=== PATIENT | male | born 1935 | race Caucasian/White ===

== ENCOUNTER 2022-10-01 12:18 | Outpatient (CLI) | payer MEDICARE, SELFPAY ==
--- NOTE | 2022-10-01 12:49 | ECG_ITS ---
Measurements Intervals [place] Rate: 65 P: MN: 0 QRS: -37 QRSD: 104 T: 29 QT: 410 QTc: 426 Interpretive Statements SINUS RHYTHM WITH MARKED FIRST DEGREE AV BLOCK LEFT AXIS DEVIATION DELAYED PRECORDIAL R/S TRANSITION BASELINE ARTIFACT- I, II, III, AVR, AVL, AVF ABNORMAL ECG NO PREVIOUS ECG AVAILABLE FOR COMPARISON Electronically Signed On 10-01-2022 13:04:36 [employer] by Jimy Henriquez D.O.
[2022-10-01 13:21] LABS: Anion Gap 6 mmol/L (8-16); Blood Urea Nitrogen 18 mg/dL (9-20); Calcium 9.9 mg/dL (8.4-10.2); Carbon Dioxide 31 mmol/L (22-30); Chloride 102 mmol/L (98-107); Estimated Glomerular Filt Rate > 60; Glucose 132 mg/dL (65-110); Potassium 3.8 mmol/L (3.4-5.0); Sodium 139 mmol/L (137-145)
== END 2022-10-01 12:19 | disposition home or self-care (01) ==
PROVIDERS: Anesthesiology; PCP Pediatrics; Visit Provider Urology
DX: R97.20 Elevated prostate specific antigen [PSA] (principal); I10 Essential (primary) hypertension; R94.31 Abnormal electrocardiogram [ECG] [EKG]; I44.0 Atrioventricular block, first degree; Z51.81 Encounter for therapeutic drug level monitoring; Z87.891 Personal history of nicotine dependence
CPT/HCPCS: 36415; 80048; 87086; 93005

== ENCOUNTER 2022-10-08 00:58 | Day surgery (SDC) | payer MEDICARE, SELFPAY ==
[2022-09-11 11:31] VITALS: BMI 25.2
--- NOTE | 2022-09-11 11:56 | PC.NURSE ---
Report to the Outpatient Waiting Room, entrance under the green pavilion located off [facility], at time _6:30AM on date __09/24/22 . Planned Procedure Time: __8:30AM . Time changes happen often and if your time is changed the preop area will call you the afternoon before. - You and your visitor will be asked to self-screen and do not enter if you have any COVID symptoms. - Only one visitor is requested with a max of two and NO children visitors are allowed at this time. - The patient visitor may be requested to leave or wait in car when not with patient due to distancing restrictions. - A mask is optional within the hospital. Patients may have clear liquids (water, carbonated beverages, clear teas, apple juice) until 3 hours prior to surgery with a maximum of 20 ounces. - No food from midnight until time of surgery. Take the following medications with a SIP of water the morning of surgery: __NONE Medications to discontinue per physician ____HOLD ALL VITAMINS/SUPPLEMENTS 7 DAYS PRE-OP (PER DR LEDESMA, PER PT) Date to take last dose___09/17/22 Please no make-up, nail sami, hairspray, perfume, deodorant, or body powder the day of surgery. No jewelry (including any body piercings) or valuables the day of surgery, leave them at home. Please take a shower or bath the night before, or the morning of, surgery with an antibacterial soap. Wear comfortable, loose fitting clothing. Children are encouraged to wear pajamas. - Jewelry must be removed prior to entering the operating room. Rings and piercings that are not removed may be cut off. - The hospital will not accept responsibility for valuables. - Please leave all valuables, including medications, at home the day of surgery. If you are going home after surgery, a licensed reach lift truck driver must drive you home. - NO public transportation without another adult if you receive anesthesia. - We recommend that an adult stay with you for 24 hours following discharge. - We also recommend that you do not drive, make important decision, drink alcoholic beverages, or take any drugs that were not prescribed by your health care provider for at least 24 hours after your discharge time. Follow any additional instructions given to you from your surgeon. If you or anyone in your household have experienced Covid symptoms in the past week, please notify your surgeon or the nurse liaison at the phone number below for possible testing. Telephone instructions given to __PATIENT and asked if any additional questions and then verbalized understanding. Patient advised to call surgeon office or pre surgery nurse liaison [phone] if any additional questions.
--- NOTE | 2022-09-25 15:32 | PC.NURSE ---
Report to the Outpatient Waiting Room, entrance under the green pavilion located off [facility], at time __6:00AM on date ___10/08/22____. Planned Procedure Time: _7:30AM . Time changes happen often and if your time is changed the preop area will call you the afternoon before. - You and your visitor will be asked to self-screen and do not enter if you have any COVID symptoms. - Only one visitor is requested with a max of two and NO children visitors are allowed at this time. - The patient visitor may be requested to leave or wait in car when not with patient due to distancing restrictions. - A mask is optional within the hospital. Patients may have clear liquids (water, carbonated beverages, clear teas, apple juice) until 3 hours prior to surgery with a maximum of 20 ounces. - No food from midnight until time of surgery Take the following medications with a SIP of water the morning of surgery: ___NONE Medications to discontinue per physician __HOLD ALL VITAMINS/SUPPLEMENTS 7 DAYS PRE-OP PER DR LEDESMA (PER PATIENT) Date to take last dose____10/01/22 Please no make-up, nail czech, hairspray, perfume, deodorant, or body powder the day of surgery. No jewelry (including any body piercings) or valuables the day of surgery, leave them at home. Please take a shower or bath the night before, or the morning of, surgery with an antibacterial soap. Wear comfortable, loose fitting clothing. Children are encouraged to wear pajamas. - Jewelry must be removed prior to entering the operating room. Rings and piercings that are not removed may be cut off. - The hospital will not accept responsibility for valuables. - Please leave all valuables, including medications, at home the day of surgery. If you are going home after surgery, a licensed truck driver salesperson must drive you home. - NO public transportation without another adult if you receive anesthesia. - We recommend that an adult stay with you for 24 hours following discharge. - We also recommend that you do not drive, make important decision, drink alcoholic beverages, or take any drugs that were not prescribed by your health care provider for at least 24 hours after your discharge time. Follow any additional instructions given to you from your surgeon. If you or anyone in your household have experienced Covid symptoms in the past week, please notify your surgeon or the nurse liaison at the phone number below for possible testing. Telephone instructions given to _PATIENT___and asked if any additional questions and then verbalized understanding. Patient advised to call surgeon office or pre surgery nurse liaison [phone] if any additional questions.
--- NOTE | 2022-10-08 06:46 | WPDANESEPPF ---
Anes - Initial Pre Proc Eval Procedure: Operation Date: 10/08/22 07:30 Proposed Procedures p Trans Rectal Fusion Guided Prostate Biopsy - Braxton Pace MD Date/Time: 10/08/22 06:46 Surgeon: Braxton Pace MD Pre Op Diagnosis: elevated psa Patient Data Age: 87 Gender: M Height: 1.85 m Weight: 87 kg Allergies Allergy/AdvReac Type Severity Reaction Status Date / Time ciprofloxacin Allergy Unknown Swelling Verified 09/25/22 15:24 Home Medications Medication Instructions Recorded Confirmed Type finasteride 5 mg tablet (Proscar) 5 mg PO DAILY 07/25/19 09/25/22 History hydrochlorothiazide 12.5 mg capsule 12.5 mg PO QAM 07/25/19 09/25/22 History cholecalciferol (vitamin D3) 125 125 mcg PO DAILY 09/11/22 09/25/22 History mcg (5,000 unit) tablet docusate sodium 100 mg capsule 100 mg PO BID PRN Constipation 09/11/22 09/25/22 History vit C 250 mg-vit E 90 mg-zinc 40 1 tablet PO DAILY 09/11/22 09/25/22 History mg-copper 1 [id number]-vmpulv capsule (PreserVision AREDS-2) vitamin B complex 1 tablet PO DAILY 09/11/22 09/25/22 History Patient hx anesthesia problems: none Family hx anesthesia problems: none Results Review: All pre-operative results and documents have been reviewed as part of the pre-operative evaluation. 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 - [place] Surgical History Surgical History H/O bilateral inguinal hernia repair H/O umbilical hernia repair x2 History of total left knee replacement Hx of appendectomy S/P left knee arthroscopy 04/2015 S/P ORIF (open reduction internal fixation) fracture Right ankle S/P spigelian hernia repair, follow-up exam LLQ 2015 S/P TURP x2 Family History Family History Father Cerebrovascular accident Sibling Malignant neoplasm of prostate Family history of malignant neoplasm of bone Mother Family history of heart disease in male family member before age 55 Sibling DVT prophylaxis Other Family history of cardiovascular disease Hypertension Social History Social History Social History: He lives with in [place], [place]. Smoking packs per day: 0.5 Smoking cigarettes per day: 10.0 Years smoked: 5 Smoking pack-years: 2.50 Smoking status: Former smoker Tobacco type: cigarettes Smoking end date: 03/08/1965 Alcohol intake: current Substance use: never Living arrangements: with family Additional living arrangements comments: Gender identity (if verbalized by the patient): Male Spiritual care concerns: No Agree to blood products: Yes Anes - Eval Final PreProcedure Day of Procedure 10/08/22 06:46 Patient weight: normal Heart: regular rate and rhythm Lungs: clear to auscultation Airway: Mallampati scale class II Neurological: alert and oriented Last oral intake: >/= 8 hours ASA classification: III Emergent: no Anesthetic plan: proceed Anesthesia type and monitoring: general LMA and standard monitoring Results Review: All pre-operative results and documents have been reviewed as part of the pre-operative evaluation. Informed Consent: The patient's anesthetic plan and its attendant risks and benefits were discussed with the patient/family/POA. Questions were solicited and answers provided to the satisfaction of the patient/family/POA.
[2022-10-08] MEDS: LACTATED RINGERS 1,000 ML 30 ML IV CONT (07:00)
--- NOTE | 2022-10-08 07:13 | WPDHPUPDATE1 ---
History and Physical Update Update Date/Time: 10/08/22 07:13 History and Physical has been reviewed, including an updated exam of the patient. There are NO changes in the patient's condition. Risks, benefits, and alternatives have been discussed and questions answered. Patient agrees to proceed with procedure. Proceed with transrectal fusion guided prostate biopsy
[2022-10-08] MEDS: ceFAZolin 2 GM/D5W 50 ML 2 GM/50 ML BAG IVPB (07:23)
[2022-10-08 07:30] VITALS: BP 129/78; PULSE 76; RESP 14; TEMP 36.1; O2SAT 97
--- NOTE | 2022-10-08 07:54 | P.OP_ITS ---
Procedure Note - Detailed Date of Procedure 10/08/22 Pre-op Diagnosis elevated psa Post-op Diagnosis Same Procedure Performed [place] us and prostate biopsy Surgeon Braxton Pace MD Anesthesia General Description of Procedure Patient is taken to the operative suite correctly identified. Once anesthesia w as obtained he was placed in decubitus position. Transrectal ultrasound was then performed. The MRI image was fused to the ultrasound image. We then targeted the 2 regions of interest with 3-4 cores at each location. Our standard 12 core biopsy was then performed. Patient tolerated procedure well without any complications is taken recovery stable condition. He is to call for the results in 1 weeks time. Please send a copy this op note to my office. Estimated Blood Loss 0 Drains No Packing No Pathology Yes Complications No immediate complications Condition Stable Disposition PACU
[2022-10-08 08:05] VITALS: BP 102/70; PULSE 65; RESP 16; O2SAT 98
[2022-10-08 08:35] VITALS: BP 145/75; PULSE 55; RESP 16
== END 2022-10-08 08:55 | disposition home or self-care (01) ==
PROVIDERS: PCP Pediatrics; Visit Provider Urology
PROC: (CPT 55700; principal; 2022-10-08 07:30)
DX: C61 Malignant neoplasm of prostate (principal); I10 Essential (primary) hypertension; I44.1 Atrioventricular block, second degree; Z87.891 Personal history of nicotine dependence
CPT/HCPCS: 55700; 76942; 88342; G0416; J0690; J2704; J3010; J7120

== ENCOUNTER 2022-10-23 12:24 | Outpatient (CLI) | payer MEDICARE, SELFPAY ==
--- NOTE | ~2022-10-23 | PE_ITS ---
EXAMINATION: PET_PETPSMAST_PT DATE: 10/23/2022 15:42 INDICATION: Malignant neoplasm of prostate. TECHNIQUE: 9.250 mCi of piflufolastat F-18 was administered intravenously. Low dose computed tomograp hy (CT) images were acquired from the base of the brain to the proximal thighs for attenuation correc tion and anatomic localization. Automated exposure control was employed. Dose-length product (DLP) wa s 727 mGy-cm. Positron emission tomography (PET) images were acquired in the same distribution. COMPARISON: CT abdomen and pelvis 07/13/2019 FINDINGS: Head/neck: There are no pathologically enlarged lymph nodes. Chest: There is mild scarring at the lung apices. Calcified left hilar and mediastinal lymph nodes ar e consistent with old granulomatous disease. No pleural effusion. The heart size is normal. There are coronary artery calcifications. No pericardial effusion. There is a small sliding hiatal hernia. Abdomen/pelvis/proximal thighs: The liver and gallbladder are normal. Calcifications in the spleen ar e consistent with old granulomatous disease. Again seen is an 11 mm cystic lesion in the body of the pancreas, likely benign. The adrenal glands and left kidney are normal. There is 11 mm cyst in right kidney. There are changes of left inguinal hernia repair. The prostate is severely enlarged. There is multifocal increased activity in the prostate bilaterally with maximum SUV of 32. There are no dilat ed loops of bowel. There are no pathologically enlarged lymph nodes. There is no free intraperitoneal fluid. There are changes of ventral hernia repair. Again seen are benign bone islands in the spine, pelvis, and left femur. IMPRESSION: 1. Severely enlarged prostate with multifocal increased activity, consistent with primary malignancy. No evidence of metastatic disease. Reviewed, dictated and finalized at location A. [employer]NAGER IMPRESSION: 1. Severely enlarged prostate with multifocal increased activity, consistent wi th primary malignancy. No evidence of metastatic disease.
== END 2022-10-23 12:25 | disposition home or self-care (01) ==
PROVIDERS: PCP Pediatrics; Visit Provider Urology
DX: C61 Malignant neoplasm of prostate (principal)
CPT/HCPCS: 78815; A9595